=== PATIENT | female | born 1970 | race Caucasian/White ===

== ENCOUNTER 2017-04-16 15:24 | Outpatient (CLI) | payer BC ==
--- NOTE | 2017-04-16 16:17 | RAD ---
THERE VIEWS RIGHT FOOT: Date: 04-16-17 History: Right foot pain for 4-5 months. FINDINGS: No evidence of fracture or dislocation. Small plantar and posterior calcaneal enthesophytes are ident ified. IMPRESSION: No acute osseous abnormality. POS: JESSIE
== END 2017-04-16 15:25 | disposition home or self-care (01) ==
LOC: SCSRAD 15:24
PROVIDERS: ATTEND Nurse Practitioner Family
DX: M79.671 Pain in right foot (principal)

== ENCOUNTER 2018-05-23 20:30 | Outpatient (CLI) | payer BC | END 2018-05-23 20:31 | disposition home or self-care (01) | LOC: SLEEPLAB 20:30 | PROVIDERS: ATTEND Nurse Practitioner Family | DX: G47.33 Obstructive sleep apnea (adult) (pediatric) (principal); R51 Headache; G47.00 Insomnia, unspecified; F41.9 Anxiety disorder, unspecified; E66.9 Obesity, unspecified; K21.9 Gastro-esophageal reflux disease without esophagitis | CPT/HCPCS: 95810 ==

== ENCOUNTER 2018-07-12 20:30 | Outpatient (CLI) | payer BC | END 2018-07-12 20:31 | disposition home or self-care (01) | LOC: SLEEPLAB 20:30 | PROVIDERS: ATTEND Nurse Practitioner Family | DX: G47.33 Obstructive sleep apnea (adult) (pediatric) (principal); R53.83 Other fatigue; R51 Headache; R06.83 Snoring; G47.00 Insomnia, unspecified; F41.9 Anxiety disorder, unspecified; G47.10 Hypersomnia, unspecified; E66.9 Obesity, unspecified; Z68.36 Body mass index [BMI] 36.0-36.9, adult | CPT/HCPCS: 95811 ==

== ENCOUNTER 2019-04-28 09:32 | Outpatient (CLI) | payer BC ==
--- NOTE | 2019-04-28 09:49 | RAD ---
XR Chest Pa Lat STANDARD HISTORY: Cough COMPARISON: 11/10/2015 FINDINGS: The heart size is normal. The lungs are well expanded without focal areas of consolidation, pneumothorax or pleural effusions. IMPRESSION: No radiographic evidence of acute cardiopulmonary process.
== END 2019-04-28 09:33 | disposition home or self-care (01) ==
LOC: BICRAD 09:32
PROVIDERS: ATTEND Family Medicine
DX: R05 Cough (principal)
CPT/HCPCS: 71046

== ENCOUNTER 2023-03-27 11:06 | Outpatient (CLI) | payer OTHER | END 2023-03-27 11:07 | disposition home or self-care (01) | LOC: DTY/OP 11:06 | PROVIDERS: ATTEND Nurse Practitioner Family | DX: E11.9 Type 2 diabetes mellitus without complications (principal) | CPT/HCPCS: 97802 ==

== ENCOUNTER 2023-12-17 10:47 | Outpatient (CLI) | payer BC | END 2023-12-17 10:48 | disposition home or self-care (01) | LOC: BICRAD 10:47 | PROVIDERS: ATTEND Nurse Practitioner Family | DX: M79.672 Pain in left foot (principal) ==